=== PATIENT | male | born 1990 | race Caucasian/White ===

== ENCOUNTER 2020-09-05 19:40 | Observation (INO) | payer MEDICAID, SELFPAY ==
--- NOTE | ~2020-09-05 | CT_ITS ---
EXAMINATION: CT abdomen pelvis w con EXAM DATE: 09/05/2020 21:09 INDICATION: Vomiting, nausea. Abdominal pain. TECHNIQUE: Spiral CT of the abdomen and pelvis was performed following intravenous injection of 100 m L Omnipaque 350. Axial, coronal and sagittal images were reviewed. The dose-length product (DLP) fo r this examination was 236.93 mGy-cm. The exposure was tailored according to patient size (auto mA e xposure control), and iterative reconstruction (ASIR) was used as additional dose reduction technique . Comparison is made to prior examination from 06/29/2019. FINDINGS: The liver, spleen, adrenal glands and pancreas are unremarkable. Gallbladder is unremarkab le. No biliary obstruction. Portal and splenic veins are patent. Kidneys enhance symmetrically. T here is no hydronephrosis. The prostate is unremarkable. The bladder is unremarkable. There is no retroperitoneal or pelvic lymphadenopathy. The appendix is normal. The stomach and small bowel are unremarkable. There is expected amount of c olonic stool. No free intraperitoneal gas. The heart is normal in size. There are no pericardial or pleural effusions. The lung bases are unremarkable. The bones are unremarkable. IMPRESSION: 1. No acute intra-abdominal findings. Reviewed, dictated and finalized at location A. EMIC TUTOR
--- NOTE | ~2020-09-05 | US_ITS ---
US right upper quadrant INDICATION: Nausea and vomiting PROCEDURE: Realtime right upper abdominal ultrasound. COMPARISON: Ultrasound dated 06/29/2019 FINDINGS: The pancreas is normal without focal mass or pancreatic ductal dilation. Liver echotexture is normal without focal mass or intrahepatic biliary dilatation. There is normal directional flow i n the portal vein. The gallbladder is normal without stones, gallbladder wall thickening or pericholecystic fluid. Comm on bile duct measures 4 mm. No sonographic Verdugo's sign. IMPRESSION: 1: Normal limited abdominal ultrasound. Reviewed, dictated and finalized at location A. READING TEACHER
[2020-09-05 19:44] VITALS: BP 119/94; PULSE 110; RESP 16; TEMP 36.5; O2SAT 98
[2020-09-05 20:16] LABS: Basophils Absolute Auto 0.1 K/mm3 (0.0-0.1); Basophils Percent Auto 0.6 % (0.2-1.2); Eosinophils Percent Auto 0.2 % (0-4.4); Hematocrit 49.5 % (42.0-52.0); Hemoglobin 17.7 g/dL (14.0-18.0); Immature Granulocyte Absolute 0.03 K/mm3 (0.00-0.031); Immature Granulocyte Percent A 0.3 % (0-0.5); Lymphocytes Absolute Auto 2.33 K/mm3 (0.9-3.2); Lymphocytes Percent Auto 21.3 % (18.3-44.2); Mean Corpuscular HGB Conc 35.8 g/dl (32-36); Mean Corpuscular Hemoglobin 29.4 pg (26-34); Mean Corpuscular Volume 82.1 fl (80-100); Monocytes Absolute Auto 0.8 K/mm3 (0.1-0.6); Monocytes Percent Auto 7.6 % (2.6-8.5); Neutrophils Absolute Auto 7.7 K/mm3 (1.3-6.7); Platelet Count Result 205 k/mm3 (150-375); Red Blood Count 6.03 M/mm3 (4.6-6.20)
[2020-09-05 20:32] LABS: Ovalocytes 1+ (NORMAL); Platelet Estimate Adequate (Adequate)
[2020-09-05 20:33] LABS: Alanine Aminotransferase 59 U/L (4-50); Albumin Level 5.3 g/dL (3.5-5.1); Alkaline Phosphatase 86 U/L (38-126); Anion Gap 16 mmol/L (8-16); Aspartate Amino Transferase 45 U/L (17-59); Bilirubin,Total 2.1 mg/dL (0.2-1.3); Blood Urea Nitrogen 17 mg/dL (9-20); Calcium 10.4 mg/dL (8.4-10.2); Carbon Dioxide 29 mmol/L (22-30); Chloride 92 mmol/L (98-107); Estimated CRCL calculation 87 ml/min; Estimated Glomerular Filt Rate > 60; Glucose 111 mg/dL (75-110); Lipase 171 U/L (23-300); Potassium 2.8 mmol/L (3.4-5.0); Sodium 137 mmol/L (137-145)
--- NOTE | 2020-09-05 20:34 | ED.NAVMDI ---
HPI - Nausea/Vomiting/Diarrhea General Chief complaint: Nausea/Vomiting/Diarrhea Stated complaint: nausea vomitting Time Seen by Provider: 09/05/20 20:31 Source: patient and family Mode of arrival: ambulatory Limitations: no limitations History of Present Illness HPI Narrative: Patient is a 30-year-old male who presents for evaluation of abdominal pain, nausea and vomiting. Patient states he has been unable to tolerate any oral intake over the past 36 hours, reports a aching, cramping pain throughout his abdomen. He denies back pain. He reports he has been slightly constipated without abdominal distention. Patient is quite thin, reports a 20 pound unintentional weight loss. He denies any history of irritable bowel diseases in himself or family. He states the symptoms seem to occur when he eats out at restaurants. He denies any diarrhea. No dark or tarry stool. No fever or chills. Patient states he was hospitalized for low potassium levels and the symptoms in 2019 with a negative work-up and endoscopy. Of note, patient is quite thin. I did inquire as to HIV status, IV drug abuse which patient denies any risk factors for HIV, denies any IV drug abuse. Related Data Allergies Allergy/AdvReac Type Severity Reaction Status Date / Time No Known Drug Allergies Allergy Verified 07/02/19 16:46 Review of Systems Review of Systems: Narrative: CONSTITUTIONAL: Denies fever, chills, or sweats. ENT: Denies rhinorrhea, congestion, sore throat, or otalgia. CARDIOVASCULAR: Denies chest pain, palpitations, or edema. RESPIRATORY: Denies cough or dyspnea. GASTROINTESTINAL: Reports abdominal pain, nausea, vomiting and constipation GENITOURINARY: Denies dysuria or hematuria. SKIN: Denies rash or itching. MUSCULOSKELETAL: Denies back pain, joint pain, or myalgia. NEUROLOGIC: Denies headache, numbness, or weakness. FORMERLY [facility], [facility] Past Medical History Medical History Marijuana abuse Tobacco dependence Social History Social History (Updated 09/05/20 @ 20:59 by Laly Sosa MD) Smoking status: Never smoker Alcohol intake: never Substance use: current Substance use type: marijuana Exam Narrative: Exam Narrative: GENERAL: Awake, alert, conversant, thin HEAD: Normocephalic, atraumatic. EYES: PERRLA and EOMI. ENT: Nares clear, no rhinorrhea or epistaxis. Mucous membranes moist. NECK: Supple. CHEST: No respiratory distress, breathing even and non labored HEART: Regular rate, sinus rhythm ABDOMEN: Scaphoid, Non distended, nonrigid, no rebound, nonguarding, mild tenderness in all 4 quadrants throughout EXTREMITIES: Normal range of motion. No edema. SKIN: Pale, warm, dry, no rash. NEURO:No focal deficits. Alert and oriented x3 Course Vital Signs Vital signs: Vital Signs Temperature 36.5 C 09/05/20 19:44 Pulse Rate 110 H 09/05/20 19:44 Respiratory Rate 16 09/05/20 19:44 Blood Pressure 119/94 H 09/05/20 19:44 Pulse Oximetry 98 09/05/20 19:44 Temperature 36.5 C 09/05/20 19:44 Pulse Rate 104 H 09/05/20 21:40 Respiratory Rate 18 09/05/20 21:40 Blood Pressure 132/74 09/05/20 21:40 Pulse Oximetry 98 09/05/20 21:40 MDM - Nausea/Vomiting/Diarrhea MDM Narrative Medical decision making narrative: Patient presented for evaluation of abdominal pain, intractable nausea and vomiting over the past 24 to 36 hours. The time of assessment, patient is normotensive, tachycardic afebrile. No distress. Patient is quite thin, I reviewed previous admission for which patient had a very extensive infectious disease work-up which was negative. 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 He states symptoms seem to be exacerbated when he eats out. Patient with abdominal pain on exam, but no focal findings. Laboratory results consistent with dehydration and hypokalemia. Patient with mild elevation in bilirubin consistent with previous admission for nausea and vomi
[2020-09-05] MEDS: MORPHINE SULFATE (*CRX) 4 MG/ML INJ IV PUSH (21:10)
[2020-09-05] MEDS: ONDANSETRON INJ 4 MG/2 ML VIAL IV PUSH (21:11)
[2020-09-05] MEDS: SODIUM CHLORIDE 0.9% IV 1,000 ML 999 ML IV CONT (21:12)
[2020-09-05] MEDS: THIAMINE HCL INJ 100 MG, FOLIC ACID INJ 1 MG, MULTIVITAMINS-12 INJ VIAL 1 5 ML, MULTIVI... IV CONT (21:38)
[2020-09-05 21:40] VITALS: BP 132/74; PULSE 104; RESP 18; O2SAT 98
[2020-09-05 21:49] LABS: HIV 1/2 Ab P24 Ag Result Negative (Negative)
[2020-09-05] MEDS: POTASSIUM CHLORIDE 20 MEQ PACKET (FOR LIQUID) PO (23:05)
[2020-09-06] VITALS (10 sets, daily range): BP systolic 115–141; BP diastolic 64–94; PULSE 52–101; RESP 16–21; TEMP 36.6–37.1; O2SAT 98–100; BMI 15.3
[2020-09-06] MEDS: SODIUM CHLORIDE 0.9% IV 1,000 ML 125 ML IV CONT ×2 (01:32→09:31)
--- NOTE | 2020-09-06 01:45 | ADMGEN ---
This patient, Chandan White, was admitted to Medical Room 252-01. Patient/family oriented to hospital policies and general routines including ID bracelet, bed and alarms, visiting hours, pain management, procedures, bathroom and other care routines, personal items, smoking policy, room service/diet, and visiting hours. Information on how to activate the Rapid Response Team has been discussed. Patient/Family are encouraged to report perceived risks to care and to ask questions if they do not understand what they are told or what they should do.
[2020-09-06 07:09] LABS: Anion Gap 5 mmol/L (8-16); Blood Urea Nitrogen 11 mg/dL (9-20); Calcium 8.5 mg/dL (8.4-10.2); Carbon Dioxide 29 mmol/L (22-30); Chloride 100 mmol/L (98-107); Estimated CRCL calculation 97 ml/min; Estimated Glomerular Filt Rate > 60; Glucose 89 mg/dL (75-110); Potassium 3.3 mmol/L (3.4-5.0); Sodium 134 mmol/L (137-145)
[2020-09-06 10:04] LABS: CRP < 0.5 mg/dL (<1.0)
--- NOTE | 2020-09-06 10:52 | PM.SD ---
Same Day Admit/Disch: HPI History of Present Illness Chief complaint: Hypokalemia, nausea and vomiting, dehydration Narrative: Chandan White is a 30 year old male who is relatively healthy with no chronic conditions who presented emergency room for nausea, vomiting and abdominal pain. Patient states this started a couple weeks prior and he states this is been going on since then. He says it mostly happens when he eats fast food but when he cooks at home, he does not have the issue. He states any time he eats anything fast food, he feels like it gets stuck and it immediately causes his stomach to hurt and it comes up. He denies burning or GERD like symptoms. He has not had any dark stool but there is 1 incidence of stool incontinence. Of note, the day of admission he threw up bright red blood x2 but that has not happened prior to this. To make matters worse, he attended a [place] dinner where multiple people got sick from the food. Everyone recovered well after about a day but he did not. Today he is taking clear liquids and doing okay. He denies abdominal pain, nausea or diarrhea. He has had an EGD in [address] Kim and takes no medication. He has taken Protonix in the past. He denies any food allergies other than apples. He denies dysuria, shortness of breath, fevers, chills, chest pain, leg swelling, or confusion. He does not drink alcohol but does smoke marijuana about once a week. He has been going through lot of stress lately since he lost his job. He has no thoughts of harming himself or others. He has had about 20 lb unintentional weight loss. No RUQ pain whatsoever during this. FORMERLY [facility] Past Medical History Medical History Marijuana abuse Tobacco dependence Family History Family History Father Diverticula of colon Mother Diverticula of colon Social History Social History (Updated 09/06/20 @ 10:57 by Latoya Harry PA-C) Social History: Patient currently smokes cigarettes and smokes marijuana about once a week. He does not drink alcohol. He would like to be a full code. His mom, Lucy, would be his surrogate decision maker Smoking status: Current some day smoker Alcohol intake: former Substance use: current Substance use type: marijuana Last use: 09/04/2020 Gender identity (if verbalized by the patient): Male Spiritual care concerns: No Same Day Admit/Disch: Med Pre-admit Medications Home Medications Medication Instructions Recorded Confirmed Type No Home Medications 09/06/20 09/06/20 History Exam Narrative: Exam Narrative: General: Then patient resting comfortably in bed in no acute distress HEENT: Normocephalic, atraumatic, PERRL, Sclerae anicteric, oral mucosa moist. Neck: Supple Resp: CTA Heart: RRR with no murmurs Abd: Soft, nontender. No pain to palpation. Positive bowel sounds Skin: Warm and dry Extremities: No swelling, erythema or pain to palpation Neuro: Alert and Oriented x4 . CN 2-12 intact. No focal neurological deficits. DS: Data Data Completed and Pending Labs on day of discharge: Labs from last 24 hours 09/06/20 09/06/20 09/06/20 09:07 09:07 09:07 WBC RBC Hgb Hct MCV MCH MCHC RDW Plt Count MPV Immature Gran % (Auto) Neut % (Auto) Lymph % (Auto) [place] % (Auto) Eos % (Auto) Baso % (Auto) Lymph # (Auto) [place] # (Auto) Eos # (Auto) Baso # (Auto) Abs Immat Gran (auto) Absolute Neuts (auto) Absolute Nucleated RBC Nucleated RBC % Platelet Estimate Ovalocytes Sodium Potassium Chloride Carbon Dioxide Anion Gap BUN Creatinine Estim Creat Clear Calc Estimated GFR Glucose Calcium Total Bilirubin AST ALT Alkaline Phosphatase C-Reactive Protein < 0.5 Total Protein Albumin Lipase
[2020-09-06 11:24] LABS: Hepatitis B Surface Antigen Negative (Negative)
[2020-09-06] MEDS: PANTOPRAZOLE 40 MG TABLET PO (11:29)
[2020-09-06] MEDS: FAMOTIDINE 20 MG/2 ML VIAL IV PUSH (11:29)
[2020-09-06 11:30] LABS: HAV RESULT Negative (Negative); Hepatitis B Core IgM Result Negative (Negative)
[2020-09-06 11:41] LABS: Hepatitis C Virus Antibody Negative (Negative)
[2020-09-06 11:52] LABS: Alanine Aminotransferase 42 U/L (4-50); Albumin Level 3.7 g/dL (3.5-5.1); Alkaline Phosphatase 51 U/L (38-126); Aspartate Amino Transferase 33 U/L (17-59); Bilirubin,Total 1.5 mg/dL (0.2-1.3)
[2020-09-06 15:42] LABS: Magnesium 1.9 mg/dL (1.6-2.3); Potassium 3.3 mmol/L (3.4-5.0)
[2020-09-06] MEDS: POTASSIUM CHLORIDE 20 MEQ TABLET 40 MEQ PO (16:43)
--- NOTE | 2020-09-13 13:20 | PC.NURSE ---
Food allergies are all negative.
== END 2020-09-06 17:17 | disposition home or self-care (01) ==
LOC: ANHED 09-06 00:09 → ANH2MED 09-06 00:44
PROVIDERS: Admitting Provider Family Medicine; Emergency Provider Emergency Medicine; Visit Provider Physician Assistant
DX: K52.9 Noninfective gastroenteritis and colitis, unspecified (principal); K29.70 Gastritis, unspecified, without bleeding; K92.0 Hematemesis; E87.6 Hypokalemia; E86.0 Dehydration; F12.10 Cannabis abuse, uncomplicated; F17.210 Nicotine dependence, cigarettes, uncomplicated
CPT/HCPCS: 36415; 74177; 76705; 80048; 80053; 80074; 80076; 83690; 83735; 84132; 84443; 85025; 86003; 86140; 86703; 96361; 96365; 96366; 96368; 96375; 99285; A9270; G0378; G0379; G0432; J2270; J2405; J3411; J3475; J3480; J7030; Q9967

== ENCOUNTER 2021-05-28 05:24 | Emergency (ER) | payer BC, SELFPAY ==
[2021-05-28 05:30] VITALS: BP 130/85; PULSE 90; RESP 18; TEMP 36; O2SAT 100
[2021-05-28 05:36] VITALS: O2SAT 100
--- NOTE | 2021-05-28 06:49 | ED.GENADULT ---
HPI - General Adult General Chief complaint: Unspecified Stated complaint: coughing up blood and congestion - possible covid Time Seen by Provider: 05/28/21 05:37 History of Present Illness HPI narrative: Patient is a 31-year-old male who presents ER with sinus congestion. Ongoing for 3 days. Today he coughed up some sputum with blood streaks in it. Reports he cannot smell through his nose due to congestion and has had decreased taste. He reports fevers and chills over the last 3 days as well. No chest pain or chest pressure. No exertional shortness of breath only cough. He is not vaccinated against Covid. Related Data Allergies Allergy/AdvReac Type Severity Reaction Status Date / Time apple Allergy Difficulty Verified 05/28/21 05:34 Breathing Review of Systems Review of Systems: All systems reviewed & are unremarkable except as noted in HPI and below Constitutional: Constitutional: Reports chills, Reports fever(s) and Reports weakness ENT: Reports nasal congestion and Reports sore throat Respiratory: Respiratory: Reports cough, Reports dyspnea and Denies wheezing PMFSH Past Medical History Medical History (Updated 05/28/21 @ 07:13 by Luis Burrell MD) IBS (irritable bowel syndrome) Marijuana abuse Tobacco dependence Surgical History Surgical History (Updated 05/28/21 @ 07:13 by Luis Burrell MD) No pertinent past surgical history Family History Family History Father Diverticula of colon Mother Diverticula of colon Social History Social History (Updated 09/06/20 @ 10:57 by Latoya Harry PA-C) Social History: Patient currently smokes cigarettes and smokes marijuana about once a week. He does not drink alcohol. He would like to be a full code. His mom, Lucy, would be his surrogate decision maker Smoking status: Current some day smoker Alcohol intake: former Substance use: current Substance use type: marijuana Last use: 09/04/2020 Gender identity (if verbalized by the patient): Male Spiritual care concerns: No Exam Narrative: GENERAL: Well-appearing, well-nourished, and in no acute distress. HEAD: Normocephalic, atraumatic. NECK: Supple. CHEST: Clear to auscultation. No respiratory distress. HEART: Regular rate and rhythm. Normal peripheral pulses. EXTREMITIES: Normal range of motion. No edema. SKIN: Warm, dry, no rash. NEURO: Alert and oriented x3. Course Course Emergency Course: Discussed treatment plan. Discharge home. Vital Signs Vital signs: Vital Signs Temperature 96.8 F L 05/28/21 05:30 Pulse Rate 90 05/28/21 05:30 Respiratory Rate 18 05/28/21 05:30 Blood Pressure 130/85 05/28/21 05:30 Pulse Oximetry 100 05/28/21 05:30 Temperature 96.8 F L 05/28/21 05:30 Pulse Rate 90 05/28/21 05:30 Respiratory Rate 18 05/28/21 05:30 Blood Pressure 130/85 05/28/21 05:30 Pulse Oximetry 100 05/28/21 05:36 Medical Decision Making Vital Signs Vital Signs: Vital Signs Temperature 96.8 F L 05/28/21 05:30 Pulse Rate 90 05/28/21 05:30 Respiratory Rate 18 05/28/21 05:30 Blood Pressure 130/85 05/28/21 05:30 Pulse Oximetry 100 05/28/21 05:30 Temperature 96.8 F L 05/28/21 05:30 Pulse Rate 90 05/28/21 05:30 Respiratory Rate 18 05/28/21 05:30 Blood Pressure 130/85 05/28/21 05:30 Pulse Oximetry 100 05/28/21 05:36 Lab Data Labs: Lab Results 05/28/21 Range/Units 05:56 SARS-CoV-2 RNA (RT-PCR) Pending Discharge Plan Discharge Clinical Impression: Person under investigation for COVID-19 Patient Disposition: Home, Self-Care Condition: Stable Instructions: COVID-19 (Coronavirus Disease 2019) (ED) Additional Instructions: Return the ER if you have fever over 100.4 ?F, you cannot keep down food or water, you have chest pain or shortness of breath, you have additional concerns. Do not return to work un
[2021-05-28 07:23] VITALS: BP 127/87; PULSE 72; RESP 18; O2SAT 98
[2021-05-29 17:28] LABS: SARS-CoV-2 RNA PCR Negative
== END 2021-05-28 07:25 | disposition home or self-care (01) ==
PROVIDERS: Emergency Provider Emergency Medicine
DX: R09.81 Nasal congestion (principal); F17.210 Nicotine dependence, cigarettes, uncomplicated; Z20.822 Contact with and (suspected) exposure to COVID-19
CPT/HCPCS: 99283; C9803; U0003; U0005